=== PATIENT | male | born 1990 | race Two or more races ===

== ENCOUNTER 2023-07-08 14:17 | Emergency (ER) | payer OTHER ==
[~2023-07-08] VITALS: Ht 193 cm; Wt 60.3 kg
[2023-07-08 15:08] VITALS: BP 121/66; PULSE 69; RESP 18; TEMP 98.8; O2SAT 99
[2023-07-08] MEDS ORDERED: IBUP-1456 PO (16:22)
== END 2023-07-08 16:31 | disposition home or self-care (01) ==
LOC: ER 14:17
DX: S92.254A Nondisplaced fracture of navicular [scaphoid] of right foot, initial encounter for closed fracture (principal); W01.0XXA Fall on same level from slipping, tripping and stumbling without subsequent striking against object, initial encounter; Y93.89 Activity, other specified; Y92.89 Other specified places as the place of occurrence of the external cause; Y99.8 Other external cause status
CPT/HCPCS: 29515; 73630